=== PATIENT | female | born 1945 | race Caucasian/White ===

== ENCOUNTER 2018-04-28 05:08 | Inpatient (IN) ==
[2018-04-28] MEDS ORDERED: Metoprolol Tartrate 25 MG Tablet PO ONE (05:42)
[2018-04-28] MEDS ORDERED: Chlorhexidine Gluconate 2% 1 Pack (2 Cloths) TOPICAL ONE (05:42)
[2018-04-28] MEDS ORDERED: Chlorhexidine 4% Topical 120 APPLIC/120 ML Bottle TOPICAL SCH (05:45)
[2018-04-28] MEDS ORDERED: Sodium Chlor 0.9% Inj 500 ML IV.SIG SCH (06:00)
[2018-04-28] MEDS ORDERED: SODIUM CHLOR 0.9% IV.SIG SCH ×2 (06:00→10:00)
[2018-04-28] MEDS ORDERED: TRANEXAMIC ACID IV.SIG SCH ×2 (06:00→10:00)
[2018-04-28] MEDS ORDERED: ceFAZolin 2 GM Premix Inj 2 GM/50 ML PIGGYBACK IV.SIG SCH (06:00)
[2018-04-28] MEDS: Bupivacaine Liposomal PF 1.3% Inj 20 ML Vial ONE ×2 (06:22→07:14)
[2018-04-28] MEDS ORDERED: Glycopyrrolate Inj 1 MG/5 ML Syringe IV.PUSH ONE (06:42)
[2018-04-28] MEDS ORDERED: Lidocaine PF 1% Inj 5 ML Syringe OTHER ONE (06:42)
[2018-04-28] MEDS ORDERED: Neostigmine Inj 5 MG/5 ML Syringe IV.PUSH ONE (06:42)
[2018-04-28] MEDS ORDERED: Sodium Chlor 0.9% Inj 80 ML, Bupivacaine Liposo PF 1.3% Inj 20 ML P-ARTICULR SCH ×2 (07:00)
[2018-04-28] MEDS ORDERED: RESP: Albuterol Concentrated 2.5 MG/0.5 ML Neb ONE (07:19)
[2018-04-28] MEDS ORDERED: Sugammadex Inj 200 MG/2 ML Vial IV.PUSH ONE (07:19)
--- NOTE | 2018-04-28 09:22 | P.OP ---
- Preoperative Diagnosis (1) Primary osteoarthritis of left knee - Postoperative Diagnosis (1) Primary osteoarthritis of left knee Date of procedure: 04/28/18 Procedure: Left total knee arthroplasty using Aysha Triathlon prosthesis (uncemented). Anesthesia: GETA, regional (Adductor canal block), local (Exparel) Surgeon: Thompson Blake MD Die Casting Machine Setter: LAURA Boss Estimated blood loss (mL): 200 Tourniquet time (min): 0 Pathology: none sent Operation and Findings: Indications and Findings: This 73-year-old woman has had left knee pain for over 4 years. She had only about 25% improvement from arthroscopic surgery in 2013. She has progressively worsened and is having difficulty with ascending and descending stairs, standing from a seated position and other activities of daily living. Her ambulation tolerance is 300-400 feet. Treatment has included the above-noted arthroscopic surgery, nonsteroidal anti-inflammatory agents, activity modification, exercise, intra-articular corticosteroids, physical therapy, acupuncture and chiropractic. These have been ineffective in improving her knee. Physical findings showed genuine varum with tenderness in the medial compartment , medial laxity, crepitation on motion and an effusion. X-rays showed severe arthritis with loss of articular cartilage to [id number] in the medial compartment with medial, lateral and patellofemoral osteophytes. There is a medial vacuum phenomenon seen on the x-ray. There is lateral meniscus, calcification. There is subchondral sclerosis. Operative findings: In the medial compartment there was severe osteoarthritis with loss of articular cartilage to expose subchondral bone. There is similar change but to a lesser extent in the patellofemoral compartment. The lateral compartment had minimal change. The prosthesis used was a Aysha Triathlon prosthesis. The femur was a size 4, cruciate retaining, uncemented. The tibial baseplate was a size 4 Tritanium with a 9 mm cruciate retaining X3 polyethylene spacer. The patella was a size 35 mm asymmetric Tritanium backed. The patient was brought to the clean-air operating suite after administration of a regional anesthetic by adductor canal block. A spinal anesthetic was administered. The position was supine with a small bolster under the hip on the operative side. A pneumatic tourniquet was applied to the upper thigh. The lower extremity was prepped with alcohol, Hibiclens and ChloraPrep and draped in the usual manner with the knee draped free. An appropriate timeout procedure was carried out. An incision was made from about 3 fingerbreadths above the superior medial pole of patella down the tibial tubercle on the medial side. The incision was deepened through the subcutaneous tissue to the retinacular structures which were exposed medially and laterally. A medial retinacular incision was made from the superior medial pole of patella down the tibial tubercle and up into the quadriceps tendon, splitting it longitudinally in the medial one third. The patella was reflected. The infrapatellar fat pad was debulked. The anterior cruciate ligament was excised. Medial and lateral meniscectomies were initiated. Fenestrations were made in the distal femur and proximal tibia for intramedullary referencing guides. The distal femoral cutting guide and jig were assembled for a 5, 8 mm cut. When this was fit into position,the cutting block was stabilized with pins. The jig was removed. The distal femoral cut was completed with the oscillating saw. The sizing guide was positioned in place along Whitesides line and the epicondylar axis and stabilized with pins. The femoral size was determined as noted above. The 4-in-1 cutting block was positioned in place. Anterior and posterior cuts were made followed by posterior and anterior chamfer cuts taking care to prevent injury to ligamentous structures. Osteophytes were trimmed from the distal femur. A bone plug was placed into the fenestration of the distal femur. The proximal tibia was exposed. The medial and lateral meniscectomies were completed. The proximal tibial cutting guide was positioned in place and stabilized with a pin for rotation. The depth of cut was verified with a stylus off the high side. The cutting block was stabilized with pins. The jig was removed. The depth of cut was verified and adjusted appropriately with the use of the spacer block. The proximal tibial cut was made with the oscillating saw taking care to prevent injury to neurovascular and ligamentous structures. Proximal tibial bone was removed. Local anesthetic was administered with Exparel in the posterior capsule. The tibial baseplate trial was positioned in place. After verifying the appropriate size, the base plate trial was positioned in place along with its spacer. The femoral component was impacted into place. The alignment was checked. The tibial baseplate was pinned in place on the tibia. Attention was directed to the patella. The patella drill guide was positioned in place for the appropriate sized patella. Patellar drilling was then carried out. The trial patella was positioned in place. The knee was taken through a range of motion which was easily 0 extension to 130 degrees by gravity and 135 degrees with pressure. The patella trial was removed. The femoral drill holes were made. The femoral trials were removed. The tibial spacer was removed. A bone plug was placed into the proximal tibia. The tibial punch was impacted through the proximal tibial punch guide. This was all removed followed by placement of the tibial drill guide. The tibial drill holes were made. The guide was removed. The cut ends of bone were cleaned with pulse lavage. The tibial baseplate was impacted into place and seated appropriately. The spacer was inserted. The the femoral component was impacted into place and seated appropriately. The patella component was seated with the patellar vice and tightened appropriately. The knee was taken through a range of motion which was comparable to the previous range of motion with excellent stability in flexion and extension and appropriate patellofemoral tracking. The remainder of the Exparel was injected throughout the knee as a local anesthetic. Drains were brought out the superior lateral aspect of the suprapatellar pouch. Wound closure commenced using 0 Vicryl interrupted [id number] sutures for the capsular and fascial structures, 2-0 Vicryl interrupted simple sutures with buried knots for the subcutaneous tissues and 4-0 Monocryl, continuous subcuticular closure for the skin. The wound was dressed with Dermabond Prineo followed by a dry sterile dressing. Sterile soft roll with a cooling pad and Daniel bandage from the base of the toes to mid thigh were applied. Patient was transferred from the operating room to the recovery room in satisfactory condition having tolerated procedure well. Counts were correct. Specimens: None. Estimated blood loss: 200 mL
--- NOTE | 2018-04-28 09:24 | P.DCO ---
- Physical Therapy Physical Therapy: Gait training Knee: Total knee, Protocol: Left, Gait training, Full weight bearing Left Lower Extremity Weight Bearing: Weight bearing as tolerated Left Lower Extremity Range of Motion: Active ROM (Active, active assisted and passive range of motion. Range of motion goal is 0 degrees extension to 130 degrees of flexion. Range of motion achieved in the operating room was 0 degrees extension to 135 degrees of flexion.) - Nursing Nursing: Dressing changes (Do not remove Dermabond Prineo (the tape that is directly on the wound).Leave the Optifoam dressing in place for 7 days. After this, daily dressing changes will be done taking care to avoid injuring or removing the Dermabond Prineo.) Dressing changes: Daily dressing change, Coverderm/Primapore Additional instructions: Do not remove Dermabond Prineo (the tape that is directly on the wound). Leave the Optifoam dressing in place for 7 days. After this, daily dressing changes will be done taking care to avoid injuring or removing the Dermabond Prineo. - Certification Need for Home Health services: I have seen patient Johana Oden on 04/28/18. My clinical findings support the need for the requested home health care services because: Need for Home Health Services: Limited ability to care for self, High risk of falls Homebound Certification: I certify that my clinical findings support that this patient is homebound because: Homebound Certification: Post-op weakness, Unsteady gait/balance, Unsafe to leave home unassisted
[2018-04-28] MEDS ORDERED: Aluminum/Magnesium/Simethacone Susp 30 ML UDC PO PRN (09:25)
[2018-04-28] MEDS ORDERED: Acetaminophen 325 MG Tablet PO PRN (09:25)
[2018-04-28] MEDS ORDERED: Post-op Orders (for Pharmacy) OTHER STA (09:25)
[2018-04-28] MEDS ORDERED: Bisacodyl 10 MG Supp RECTAL PRN (09:25)
[2018-04-28] MEDS ORDERED: Morphine Inj 4 MG/ML Vial IV.PUSH PRN (09:25)
[2018-04-28] MEDS ORDERED: Tranexamic Acid Inj 0 MG in Sodium Chlor 0.9% Inj 100 ML IV.SIG ONE (09:25)
[2018-04-28] MEDS ORDERED: fentaNYL Citrate Inj 100 MCG/2 ML Ampul ONE (09:47)
[2018-04-28] MEDS: Ketorolac Inj 30 MG/ML (IVP) Vial IV.PUSH SCH ×3 (10:08→21:15)
[2018-04-28] MEDS ORDERED: *morphine SULFATE 4 MG/ML PERIprocedure ONLY ONE ×2 (10:22→12:10)
--- NOTE | 2018-04-28 10:42 | XR ---
EXAM DATE: 04/28/2018 10:40 AM EDT AGE/SEX: 73 years / Female INDICATIONS: Post op left knee surgery CLINICAL DATA: This is the patient's initial encounter. Patient reports that signs and symptoms have been present for 1 day and indicates a pain score of Nonresponsive. MEDICAL/SURGICAL HISTORY: None. None. COMPARISON: No prior exams available for comparison. FINDINGS: Two-view knee demonstrates patient's had a total knee arthroplasty in excellent position. There is no visible complications. Surgical drains overlie the mean. CONCLUSION: Status post total knee arthroplasty in excellent position Electronically signed by: John Cedeno MD 04/28/2018 10:41 AM EDT
[2018-04-28] MEDS: ceFAZolin 1 GM Premix Inj 1 GM/50 ML IV.SIG SCH ×2 (12:48→18:33)
[2018-04-28] MEDS ORDERED: Influenza (Quadrivalent) Vaccine 0.5 ML Syringe IM ONE (17:00)
[2018-04-28] MEDS ORDERED: Zolpidem Tartrate 5 MG Tablet PO PRN (21:00)
[2018-04-28] MEDS: Senna/Docusate Sodium 8.6/50 MG Tablet PO SCH (21:14)
[2018-04-29] MEDS: ceFAZolin 1 GM Premix Inj 1 GM/50 ML IV.SIG SCH (01:12)
[2018-04-29] MEDS: Ketorolac Inj 30 MG/ML (IVP) Vial IV.PUSH SCH ×5 (04:47→22:10)
[2018-04-29 05:44] LABS: Hematocrit 37.9 % (35.0-46.0); Hemoglobin 12.8 gm/dL (11.6-15.3)
--- NOTE | 2018-04-29 07:28 | P.PNOP ---
Subjective Interval history: Postop day #1 She is doing well. She has minimal complaints related to the knee at this time. Physical therapy reports that the ambulation distance was 96 feet. The range of motion was 0 degrees of extension to 76 degrees of flexion. Physical Exam Vital signs: Vital Signs 04/28/18 09:42 04/28/18 10:00 04/28/18 10:15 Temperature 98 F Pulse Rate 83 84 82 Respiratory Rate 18 18 18 Blood Pressure 111/54 L 158/67 H 140/66 Pulse Oximetry 95 97 95 04/28/18 10:30 04/28/18 10:45 04/28/18 12:00 Temperature Pulse Rate 72 74 67 Respiratory Rate 18 18 18 Blood Pressure 125/60 125/60 135/65 Pulse Oximetry 95 95 95 04/28/18 13:00 04/28/18 14:00 04/28/18 15:40 Temperature 98.3 F Pulse Rate 71 89 89 Respiratory Rate 18 18 18 Blood Pressure 126/59 L 120/55 L 122/69 Pulse Oximetry 95 94 L 96 04/28/18 16:20 04/28/18 19:07 04/28/18 23:00 Temperature 97.8 F 97.8 F 97.9 F Pulse Rate 74 67 70 Respiratory Rate 16 18 17 Blood Pressure 107/53 L 115/55 L 112/58 L Pulse Oximetry 94 L 95 96 04/29/18 03:23 Temperature 97.0 F L Pulse Rate 61 Respiratory Rate 18 Blood Pressure 112/61 Pulse Oximetry 97 Intake & Output 04/28/18 04/29/18 04/29/18 18:59 06:59 18:59 Intake Total 1949.73 / 1949.73 1380 / 1380 Output Total 330 / 330 100 / 100 Balance 1619.73 / 1619.73 1280 / 1280 Weight 115.4 kg 115.4 kg Intake: IV 1209.73 / 1209.73 900 / 900 LR 1000 mL Inj 1,000 ML @ 80 800 / 800 mls/hr IV.CONT .[id number] JULIA Rx# :[id number] LR 1000 mL Inj 1,000 ML @ 30 1000 / 1000 mls/hr IV.SIG .Q24H JULIA Rx#: [id number] Cyklokapron Inj 973 MG In NS 109.73 / 109.73 Inj 100 ML @ 200 mls/hr IV.SIG ONCE JULIA Rx#:[id number] Ancef 1 GM Premix Inj 1 gm In 50 / 50 100 / 100 50 ml @ 100 mls/hr IV.SIG Q6H JULIA Rx#:[id number] Ancef 2 GM Premix Inj 2 gm In 50 / 50 50 ml @ 100 mls/hr IV.SIG ACTING PROFESSOR JULIA Rx#:[id number] Oral 240 / 240 480 / 480 Anesthesia Amount 500 / 500 Output: Estimated Blood Loss 200 / 200 Wound Drainage 130 / 130 100 / 100 # 2 Left Lateral Thigh 130 / 130 100 / 100 Other: # Voids 4 Date of Last Bowel Movement 04/27/18 04/27/18 # Bowel Movements 0 Narrative: He is resting comfortably, supine in bed. The dressing is dry and intact. Her neurovascular status is intact. Results - Labs CBC & Chem 7: 04/29/18 05:28 Laboratory Results - last 24 hr 04/29/18 05:28 Hgb 12.8 Hct 37.9 - Imaging Impressions Knee X-Ray 04/28/18 09:24 CONCLUSION: Status post total knee arthroplasty in excellent position - Procedures Left total knee arthroplasty using Aysha Triathlon prosthesis (uncemented) on 04/28/2018. Assessment and Plan - Ortho Post Op Day # 1 - Problem List (1) Status post total left knee replacement not using cement Code(s): Z96.652 - Presence of left artificial knee joint Status: Acute - Assessment and Plan Condition: Good. Orthopedically stable. DVT prophylaxis: TEDs, aspirin, sequentials. Discharge plans: Home with home health care. An appointment was scheduled through the office. Prescriptions: [facility] 7.5/325; Patient is having significant pain caused by a total knee replacement which will last more than 3 days. Trial of Tylenol has not helped. I believe that it is medically necessary to treat patients pain because it is affecting patients ability to participate in postoperative rehabilitation and perform activities of daily living in a comfortable and efficient manner.
--- NOTE | 2018-04-29 08:13 | P.DS ---
Date of admission: 04/28/18 05:08 Primary care physician: Nick Hamilton DO Attending physician on discharge: Thompson Blake Anticipated date of discharge: 05/01/18 Brief History from admission: This 73-year-old woman has had long-standing left knee nonresponsive to conservative measures as detailed in the history and physical examination and the operative report. She has gone for elective total knee arthroplasty. Physical findings showed genuine varum with medial laxity and crepitation on motion. X-rays showed severe arthritis in the medial compartment with loss of articular cartilage to [id number], subchondral sclerosis and tricompartmental osteophytes. DS: Diagnosis - Discharge Diagnosis (1) Status post total left knee replacement not using cement Status: Acute Diagnosis: Principal (2) Primary osteoarthritis of left knee Status: Chronic Diagnosis: Principal DS: Medications - Discharge Medications Prescriptions: tramadol [Ultram] 50 mg PO Q4HR PRN 7 Days #42 tab PRN Reason: Pain Scale 1 To 10 DS: Summary Hospital Course: The patient was admitted as noted above. The above noted operative procedure was carried out that day. Preoperatively prophylactic antibiotics were administered Ancef according to protocol. These were continued postoperatively. The patient also received tranexamic acid to help with hemostasis according to protocol. In the postanesthesia care unit mechanical methods of DVT prophylaxis were initiated in the form of PILAR stockings and sequentials. Physical therapy was initiated on the day of surgery. On postoperative day #1 physical therapy continued. DVT prophylaxis with aspirin 81 mg was initiated at this time. The patient continued physical therapy throughout the hospitalization. The distance walked and range of motion improved throughout the hospitalization. The patient was discharged on postoperative day 3 with the disposition being to a [place] [facility] because she lives in [place] and would have to travel in a truck that she cannot enter and/or an RV that she will have difficulty entering. An appointment for follow-up was made prior to admission. - Time Spent with Patient Total time spent providing and/or coordinating discharge services: Greater than 30 minutes - Quality: VTE Deep Vein Thrombosis/Pulmonary Embolism Present on Admission: No Exam Vital signs: Vital Signs 04/28/18 09:42 04/28/18 10:00 04/28/18 10:15 Temperature 98 F Pulse Rate 83 84 82 Respiratory Rate 18 18 18 Blood Pressure 111/54 L 158/67 H 140/66 Pulse Oximetry 95 97 95 10/30/18 10:30 04/28/18 10:45 04/28/18 12:00 Temperature Pulse Rate 72 74 67 Respiratory Rate 18 18 18 Blood Pressure 125/60 125/60 135/65 Pulse Oximetry 95 95 95 04/28/18 13:00 04/28/18 14:00 04/28/18 15:40 Temperature 98.3 F Pulse Rate 71 89 89 Respiratory Rate 18 18 18 Blood Pressure 126/59 L 120/55 L 122/69 Pulse Oximetry 95 94 L 96 04/28/18 16:20 04/28/18 19:07 04/28/18 23:00 Temperature 97.8 F 97.8 F 97.9 F Pulse Rate 74 67 70 Respiratory Rate 16 18 17 Blood Pressure 107/53 L 115/55 L 112/58 L Pulse Oximetry 94 L 95 96 04/29/18 03:23 Temperature 97.0 F L Pulse Rate 61 Respiratory Rate 18 Blood Pressure 112/61 Pulse Oximetry 97 Intake & Output 04/28/18 04/29/18 04/29/18 18:59 06:59 18:59 Intake Total 1949.73 / 1949.73 1380 / 1380 Output Total 330 / 330 100 / 100 Balance 1619.73 / 1619.73 1280 / 1280 Weight 115.4 kg 115.4 kg Intake: IV 1209.73 / 1209.73 900 / 900 LR 1000 mL Inj 1,000 ML @ 80 800 / 800 mls/hr IV.CONT .[id number] JULIA Rx# :[id number] LR 1000 mL Inj 1,000 ML @ 30 1000 / 1000 mls/hr IV.SIG .Q24H JULIA Rx#: [id number] Cyklokapron Inj 973 MG In NS 109.73 / 109.73 Inj 100 ML @ 200 mls/hr IV.SIG ONCE JULIA Rx#:[id number] Ancef 1 GM Premix Inj 1 gm In 50 / 50 100 / 100 50 ml @ 100 mls/hr IV.SIG Q6H JULIA Rx#:[id number] Ancef 2 GM Premix Inj 2 gm In 50 / 50 50 ml @ 100 mls/hr IV.SIG LABOR GANG SUPERVISOR JULIA Rx#:[id number] Oral 240 / 240 480 / 480 Anesthesia Amount 500 / 500 Output: Estimated Blood Loss 200 / 200 Wound Drainage 130 / 130 100 / 100 # 2 Left Lateral Thigh 130 / 130 100 / 100 Other: # Voids 4 Date of Last Bowel Movement 04/27/18 04/27/18 # Bowel Movements 0 Narrative: She is resting comfortably, supine in bed. The dressing is dry and intact. The neurovascular status is intact. Results Procedures completed during hospitalization: Left total knee arthroplasty using Aysha Triathlon prosthesis (uncemented) on 04/28/2018. Labs on day of discharge: Labs from last 24 hours 04/29/18 05:28 Hgb 12.8 Hct 37.9 - Impressions ITS Impressions Knee X-Ray 04/28/18 09:24 CONCLUSION: Status post total knee arthroplasty in excellent position Discharge Plan - Discharge Disposition Patient Disposition: Discharge to SNF - Discharge Condition Condition: Stable - Discharge Order Discharge Orders: Discharge Order (Routine); Ordered 04/29/18 Ordered By: Thompson Blake - Discharge Details Anticipated Discharge Date: 05/01/18 - Physicians Team Primary Care Provider: Nick Hamilton Attending Provider: Thompson Blake Other Providers: Lalo May ; [facility],Agency - Rxs /Orders / Referrals /Forms Prescriptions: New aspirin 81 mg Tablet,Chewable 81 mg PO BID RF: 0 tramadol [Ultram] 50 mg Tablet 50 mg PO Q4HR PRN (Reason: Pain Scale 1 To 10) 7 Days Qty: 42 RF: 0 Continue cholecalciferol (vitamin D3) [Vitamin D3] 2,000 unit Capsule 2,000 unit PO DAILY garlic 1,000 mg Capsule 2,000 mg PO DAILY [id number] 200-5-0.8-400 mg Capsule 100 mg PO DAILY Referrals: Thompson Blake MD [Physician] - See Instructions Nick Hamilton DO [Primary Care Provider] - See Instructions - Discharge Instructions Patient Printed Instructions: Knee Replacement (DC)
[2018-04-29] MEDS: Senna/Docusate Sodium 8.6/50 MG Tablet PO SCH ×2 (08:45→20:31)
[2018-04-29] MEDS ORDERED: GARLIC 2000 MG PO SCH (09:00)
[2018-04-29] MEDS ORDERED: [UNRECOGNIZED DRUG - OTHER] PO SCH (09:00)
--- NOTE | 2018-04-29 09:54 | P.CON ---
History of Present Illness Service: Hospitalist Consult date: 04/29/18 Requesting Physician: Thompson Blake Reason for Consult: Medical management. Primary Care Provider: Nick Hamilton DO Chief Complaint: left knee pain History of Present Illness: Ms. Oden is a pleasant 73-year-old female with a history of left knee pain, no other medical history who underwent elective left total knee arthroplasty on . Hospitalist service was consulted for medical management. Patient is currently doing well. He she denies any chest pain, shortness of breath fever or chills. She is sitting in her chair and reports adequate pain control. She denies any changes in bowel or bladder habits. Past medical history: Osteoarthritis Past surgical history: Lateral meniscus repair of left knee, spinal fusion, Lasik surgery Social history: Smoked for 25 years. Currently a non-smoker. She drinks alcohol socially. Family history: No family history of Alzheimer's or Parkinson's. Review of Systems All other systems reviewed negative except as stated in HPI [facility] - History History Provided By: Patient - Medical History Medical History: Medical History (Last Reviewed 04/28/18 @ 13:44 by Saumya Rivas) Arthritis History of anesthesia reaction - Surgical History Surgical History: Surgical History (Last Reviewed 04/29/18 @ 10:02 by Barb Guevara) H/O lateral meniscus repair of left knee H/O spinal fusion Hx of LASIK - Tobacco History Second Hand Smoke Exposure: No Tobacco Use In Past 30 Days: No Smoking Status: Never smoker - Alcohol History How Often Do You Have a Drink Containing Alcohol: Monthly or less - Substance Use History Substance History: No History of Abuse - Travel History Recent Travel in the [place] Within the Last 8 Weeks: No Recent Travel Out of the Country Within the Last 8 Weeks: No - Immunization History Tetanus Immunization: <5 Years Hx Influenza Vaccine This Season: No Medications and Allergies Active Medications: Active Medications Acetaminophen (Tylenol) 650 mg PO Q6H PRN PRN Reason: Pain Less Than 3 On Scale Hydrocodone Bitart/Acetaminophen ([place] 7.5/325) 1 tab PO Q4H PRN PRN Reason: PAIN SCALE 4 TO 6 MODERATE Last Admin: 04/28/18 18:05 Dose: 1 tab Hydrocodone Bitart/Acetaminophen ([place] 7.5/325) 2 tab PO Q6H PRN PRN Reason: PAIN SCALE 7 TO 10 SEVERE Al Hydrox/Mg Hydrox/Simethicone (Mag-Al Plus Susp Liq) 30 ml PO Q6H PRN PRN Reason: INDIGESTION Al Hydroxide/Mg Hydroxide (Milk Of Magnesia Liq) 30 ml PO BID PRN PRN Reason: Mild Constipation Aspirin (Aspirin Chew) 81 mg PO BID [facility] Last Admin: 04/29/18 09:00 Dose: 81 mg Bisacodyl (Dulcolax Supp) 10 mg RECTAL DAILY PRN PRN Reason: SEVERE CONSITIPATION Chlorhexidine Gluconate (Hibiclens 4% Topical) 1 applicatio TOPICAL ONCE [facility] Stop: 05/02/18 05:44 Last Admin: 04/28/18 06:09 Dose: 1 applicatio Diphenhydramine HCl (Benadryl) 25 mg PO Q6H PRN PRN Reason: ITCHING Cefazolin Sodium/Dextrose (Ancef 2 Gm Premix Inj) 2 gm in 50 mls @ 100 mls/hr IV.SIG [employer] [facility] Stop: 05/02/18 05:59 Last Infusion: 04/28/18 07:36 Dose: Infused Sodium Chloride (Ns Inj) 500 mls @ 30 mls/hr IV.SIG .Q10H [facility] Last Admin: 04/28/18 19:58 Dose: Not Given Lactated Ringer's (Lr 1000 Ml Inj) 1,000 mls @ 80 mls/hr IV.CONT .[id number] [facility] Last Infusion: 04/29/18 02:16 Dose: Infused Ketorolac Tromethamine (Toradol Inj) 15 mg IV.PUSH Q6H [facility] Stop: 04/30/18 04:01 Last Admin: 04/29/18 04:47 Dose: 15 mg Lactulose (Lactulose Liq) 30 ml PO DAILY PRN PRN Reason: SEVERE CONSITIPATION Morphine Sulfate (Morphine Inj) 2 mg IV.PUSH Q3H PRN PRN Reason: BREAKTHROUGH PAIN Ondansetron HCl (Zofran Odt) 4 mg PO Q6H PRN PRN Reason: NAUSEA OR VOMITING Senna/Docusate Sodium (Suzie-Colace) 1 tab PO BID [facility] Last Admin: 04/29/18 08:45 Dose: 1 tab Sennosides (Senokot) 17.2 mg PO BID PRN PRN Reason: Moderate Constipation Sodium Chloride (Ns Flush) 2 ml IV.FLUSH BID [facility] Last Admin: 04/29/18 08:58 Dose: 2 ml Sodium Chloride (Ns Flush) 2 ml IV.FLUSH PRN PRN PRN Reason: FLUSH AFTER USING IV ACCESS Vitamin D (Vitamin D3) 2,000 unit PO DAILY [facility] Last Admin: 04/29/18 09:21 Dose: Not Given Zolpidem Tartrate (Ambien) 5 mg PO HS PRN PRN Reason: INSOMNIA Allergies Allergy/AdvReac Type Severity Reaction Status Date / Time codeine Allergy Severe Itching Verified 04/09/18 09:14 shellfish derived AdvReac Mild Itching Verified 04/28/18 05:52 Home Medications Medication Instructions Recorded Confirmed Type cholecalciferol (vitamin D3) 2,000 unit PO DAILY 04/28/18 04/28/18 History [Vitamin D3] garlic 2,000 mg PO DAILY 04/28/18 04/28/18 History [id number] 100 mg PO DAILY 04/28/18 04/28/18 History Physical Exam Vital signs: Vital Signs 04/28/18 10:00 04/28/18 10:15 04/28/18 10:30 Temperature Pulse Rate 84 82 72 Respiratory Rate 18 18 18 Blood Pressure 158/67 H 140/66 125/60 Pulse Oximetry 97 95 95 04/28/18 10:45 04/28/18 12:00 04/28/18 13:00 Temperature Pulse Rate 74 67 71 Respiratory Rate 18 18 18 Blood Pressure 125/60 135/65 126/59 L Pulse Oximetry 95 95 95 04/28/18 14:00 04/28/18 15:40 04/28/18 16:20 Temperature 98.3 F 97.8 F Pulse Rate 89 89 74 Respiratory Rate 18 18 16 Blood Pressure 120/55 L 122/69 107/53 L Pulse Oximetry 94 L 96 94 L 04/28/18 19:07 04/28/18 23:00 04/29/18 03:23 Temperature 97.8 F 97.9 F 97.0 F L Pulse Rate 67 70 61 Respiratory Rate 18 17 18 Blood Pressure 115/55 L 112/58 L 112/61 Pulse Oximetry 95 96 97 04/29/18 08:00 Temperature 97.9 F Pulse Rate 58 L Respiratory Rate 17 Blood Pressure 142/65 H Pulse Oximetry 97 Intake & Output 04/28/18 04/29/18 04/29/18 18:59 06:59 18:59 Intake Total 1949.73 / 1949.73 1380 / 1380 Output Total 330 / 330 100 / 100 Balance 1619.73 / 1619.73 1280 / 1280 Weight 115.4 kg 115.4 kg Intake: IV 1209.73 / 1209.73 900 / 900 LR 1000 mL Inj 1,000 ML @ 80 800 / 800 mls/hr IV.CONT .[id number] [facility] Rx# :[id number] LR 1000 mL Inj 1,000 ML @ 30 1000 / 1000 mls/hr IV.SIG .Q24H [facility] Rx#: [id number] Cyklokapron Inj 973 MG In NS 109.73 / 109.73 Inj 100 ML @ 200 mls/hr IV.SIG ONCE [facility] Rx#:[id number] Ancef 1 GM Premix Inj 1 gm In 50 / 50 100 / 100 50 ml @ 100 mls/hr IV.SIG Q6H [facility] Rx#:[id number] Ancef 2 GM Premix Inj 2 gm In 50 / 50 50 ml @ 100 mls/hr IV.SIG [employer] [facility] Rx#:[id number] Oral 240 / 240 480 / 480 Anesthesia Amount 500 / 500 Output: Estimated Blood Loss 200 / 200 Wound Drainage 130 / 130 100 / 100 # 2 Left Lateral Thigh 130 / 130 100 / 100 Other: # Voids 4 Date of Last Bowel Movement 04/27/18 04/27/18 04/27/18 # Bowel Movements 0 Narrative: GENERAL: This is a well-nourished, well-developed patient, in no apparent distress. SKIN: No rashes, ecchymoses or lesions. Warm and dry. HEAD: Atraumatic. Normocephalic. No temporal or scalp tenderness. EYES: Pupils equal round and reactive. No injection or drainage. ENT: Nose without bleeding, purulent drainage or septal hematoma. Airway patent. NECK: Trachea midline. No lymphadenopathy. Supple, nontender, no meningeal signs. CARDIOVASCULAR: Regular rate and rhythm without murmurs, gallops, or rubs. No JVD. RESPIRATORY: Clear to auscultation. Breath sounds equal bilaterally. No wheezes , rales, or rhonchi. GASTROINTESTINAL: Abdomen soft, non-tender, nondistended. No guarding. MUSCULOSKELETAL: Extremities without clubbing, cyanosis, or edema. Status post left-sided TKA NEUROLOGICAL: Awake and alert. Cranial nerves II through XII intact. No focal neurological deficits. Normal speech. Assessment and Plan - Plan Ms. Oden is a 73-year-old female with a history of left knee osteoarthritis who underwent elective left total knee arthroplasty on 04/28/2018. Hospital service was consulted for medical management. Patient is medically stable. No acute medical concerns. Left knee osteoarthritis -Status post left total knee arthroplasty -Continue [place], morphine for pain management -Bowel regimen Full code. Aspirin 81 mg twice daily. Thank you for the consult. Patient has no acute medical concerns. We will sign off at this point. Will be available as needed.
[2018-04-30] MEDS: Ketorolac Inj 30 MG/ML (IVP) Vial IV.PUSH SCH (04:03)
[2018-04-30 05:04] LABS: Hematocrit 34.5 % (35.0-46.0); Hemoglobin 11.7 gm/dL (11.6-15.3)
--- NOTE | 2018-04-30 07:30 | P.PNOP ---
Subjective Interval history: Postop day #2 She is having difficulty with some of the analgesics. She feels that they make her "fuzzy". She also has some itching on occasion about 3 hours after taking it. She has gastrointestinal discomfort at this time. She has not yet moved her bowels. She indicates that her has an RV in town to help slightly her. They live in [place]. She feels that she cannot get into or out of the vehicle or the RV easily. She would prefer going to a fdc facility. Physical therapy reports that the ambulation distance was 175 feet. The range of motion was 0 degrees of extension to 80 degrees of flexion. Physical Exam Vital signs: Vital Signs 04/29/18 08:00 04/29/18 12:00 04/29/18 16:00 Temperature 97.9 F 97.3 F L 97.9 F Pulse Rate 58 L 65 80 Respiratory Rate 17 16 17 Blood Pressure 142/65 H 133/63 127/71 Pulse Oximetry 97 98 94 L 04/29/18 20:00 04/30/18 00:10 04/30/18 04:50 Temperature 98.0 F 97.9 F 97.1 F L Pulse Rate 60 60 64 Respiratory Rate 17 16 17 Blood Pressure 118/57 L 132/60 117/59 L Pulse Oximetry 95 94 L 94 L Intake & Output 04/29/18 04/30/18 04/30/18 18:59 06:59 18:59 Intake Total 600 / 600 960 / 960 Output Total 70 / 70 Balance 530 / 530 960 / 960 Weight 115 kg Intake: Oral 600 / 600 960 / 960 Output: Wound Drainage 70 / 70 # 2 Left Lateral Thigh 70 / 70 Other: # Voids 3 4 Date of Last Bowel Movement 04/27/18 04/27/18 # Bowel Movements 0 Narrative: She is resting comfortably, supine in bed. The dressing is dry and intact. Her neurovascular status is intact. Results - Labs CBC & Chem 7: 04/30/18 04:16 Laboratory Results - last 24 hr 04/30/18 04:16 Hgb 11.7 Hct 34.5 L - Procedures Left total knee arthroplasty using Asyha Triathlon prosthesis (uncemented) on 04/28/2018. Assessment and Plan - Ortho Post Op Day # 2 - Assessment and Plan Condition: Good. Orthopedically stable. A change in her analgesic to tramadol is planned because of her gastrointestinal problems and pruritus. DVT prophylaxis: TEDs, aspirin, sequentials. Discharge plans: Home with home health care; although we will have to consider fdc facility for rehabilitation.. An appointment was scheduled through the office. Prescriptions: Tramadol 50 mg; Patient is having significant pain caused by a total knee replacement which will last more than 3 days. Trial of Tylenol has not helped. I believe that it is medically necessary to treat patients pain because it is affecting patients ability to participate in postoperative rehabilitation and perform activities of daily living in a comfortable and efficient manner.
[2018-04-30] MEDS: Senna/Docusate Sodium 8.6/50 MG Tablet PO SCH (08:45)
== END 2018-04-30 15:03 ==
LOC: HSDI 05:08 → N06 16:32
PROVIDERS: ADMIT Orthopaedic Surgery; ATTEND Orthopaedic Surgery